=== PATIENT | female | born 1935 | race Two or more races ===

== ENCOUNTER 2021-07-05 05:50 | Day surgery (SDC) | payer OTHER | END 2021-07-05 14:24 | disposition home or self-care (01) | LOC: CIR.AMB 05:50 | PROVIDERS: ATTEND Specialist | DX: C85.90 Non-Hodgkin lymphoma, unspecified, unspecified site (principal) ==

== ENCOUNTER 2021-10-15 20:07 | Emergency (ER) | payer OTHER ==
[~2021-10-15] VITALS: Ht 170.2 cm; Wt 49.9 kg
== END 2021-10-16 00:44 | disposition home or self-care (01) ==
LOC: ER 20:07
DX: M54.2 Cervicalgia (principal); M62.838 Other muscle spasm; Z88.6 Allergy status to analgesic agent

== ENCOUNTER 2021-10-19 14:21 | Emergency (ER) | payer OTHER ==
[~2021-10-19] VITALS: Ht 165.1 cm; Wt 47.6 kg
[2021-10-19] MEDS ORDERED: REVLIMID20 MG PO (14:47)
== END 2021-10-19 17:53 | disposition home or self-care (01) ==
LOC: ER 14:21
DX: M79.604 Pain in right leg (principal); M79.671 Pain in right foot; C85.90 Non-Hodgkin lymphoma, unspecified, unspecified site; Z88.6 Allergy status to analgesic agent

== ENCOUNTER 2021-10-20 09:15 | Outpatient (CLI) | payer OTHER ==
[~2021-10-20 09:15] MED LIST: REVLIMID20 MG PO
== END 2021-10-20 09:23 | disposition home or self-care (01) ==
LOC: NUCLEAR 09:15
PROVIDERS: ATTEND General Practice
DX: I82.411 Acute embolism and thrombosis of right femoral vein (principal); M79.604 Pain in right leg; Z88.6 Allergy status to analgesic agent

== ENCOUNTER 2021-11-01 08:11 | Outpatient (CLI) | payer OTHER | END 2021-11-01 08:16 | disposition home or self-care (01) | LOC: NUCLEAR 08:11 | PROVIDERS: ATTEND General Practice | DX: I82.411 Acute embolism and thrombosis of right femoral vein (principal) ==

== ENCOUNTER 2021-12-22 13:55 | Inpatient (IN) | payer OTHER ==
[~2021-12-22] VITALS: Ht 162.6 cm; Wt 49.9 kg
--- NOTE | 2021-12-22 14:03 | NUR ---
SE RECIBE PACIENTE EN AMBULANCIA ALERTA Y ORIENTADA X3, QUIEN REFIERE QUE ESTA MANANA COMENZO CON DOLOR EN LA PARTE DE LA ESPALDA BAJA QUE NO LA GAURI MOVERSE, SE MONITOREAN S/V Y SE UBICA PACIENTE. PACIENTE REFIERE QUE TUVO UN VOMITO.
--- NOTE | 2021-12-22 14:56 | NUR ---
SE ORIENTA PTE SOBRE TX A SEGUIR, EL CUAL REFIERE ENTENDER. SE COLECTAN MUESTRAS UTILIZANDO MEDIDAS ASEPTICAS. PTE LLEGA CANALIZADA CON ANGIO #16 PATENTE. AREA DE VENOPUNCION NGOC DE EDEMA Y ERITEMA. PEND CT. SE ADMINISTRAN MEDICAMENTOS GUSTAVO ORDEN MEDICA
[2021-12-23] MEDS ORDERED: REVLIMID20 MG (10:48)
[2021-12-23] MEDS ORDERED: DAFLONEX-XL 11300 MG (10:48)
[2021-12-29] MEDS ORDERED: DOCUSATE SODIU100 MG PO (08:38)
[2021-12-29] MEDS ORDERED: GABAPENTIN100 MG PO (08:38)
[2021-12-29] MEDS ORDERED: LIDODERM1 EACH TOP (08:39)
[2021-12-29] MEDS ORDERED: FAMOTIDINE20 MG PO (08:39)
[2021-12-29] MEDS ORDERED: Proctofoam RECTAL (08:40)
[2021-12-29] MEDS ORDERED: FENTANYL1 EAC3 TD (08:42)
== END 2021-12-29 09:24 | disposition home or self-care (01) | DRG 543 ==
LOC: ER 13:55 → MEDJ 20:48
PROVIDERS: ADMIT Internal Medicine Hematology & Oncology; ATTEND Internal Medicine Hematology & Oncology
PROC: BR29ZZZ Computerized Tomography (CT Scan) of Lumbar Spine (ICD-10-PCS; principal; 2021-12-23)
PROC: BR39ZZZ Magnetic Resonance Imaging (MRI) of Lumbar Spine (ICD-10-PCS; 2021-12-23)
PROC: 2W35X3Z Immobilization of Back using Brace (ICD-10-PCS; 2021-12-28)
DX: M80.08XA Age-related osteoporosis with current pathological fracture, vertebra(e), initial encounter for fracture (principal); C85.99 Non-Hodgkin lymphoma, unspecified, extranodal and solid organ sites; Z88.6 Allergy status to analgesic agent; Z20.822 Contact with and (suspected) exposure to COVID-19
CPT/HCPCS: 72158

== ENCOUNTER 2022-05-19 07:43 | Outpatient (CLI) | payer OTHER ==
[~2022-05-19 07:43] MED LIST changes: +DAFLONEX-XL 11300 MG; +DOCUSATE SODIU100 MG PO; +FAMOTIDINE20 MG PO; +FENTANYL1 EAC3 TD; +GABAPENTIN100 MG PO; +LIDODERM1 EACH TOP; +Proctofoam RECTAL; +REVLIMID20 MG
== END 2022-05-19 08:02 | disposition home or self-care (01) ==
LOC: TOM 07:43
PROVIDERS: ATTEND Internal Medicine Hematology & Oncology
DX: C88.4 Extranodal marginal zone B-cell lymphoma of mucosa-associated lymphoid tissue [MALT-lymphoma] (principal)

== ENCOUNTER 2023-01-01 08:09 | Outpatient (CLI) | payer OTHER | END 2023-01-01 08:10 | disposition home or self-care (01) | LOC: NUCLEAR 08:09 | PROVIDERS: ATTEND Internal Medicine Hematology & Oncology | DX: C88.4 Extranodal marginal zone B-cell lymphoma of mucosa-associated lymphoid tissue [MALT-lymphoma] (principal) | CPT/HCPCS: 78815; A9552 ==